=== PATIENT | female | born 1985 | race American Indian/Alaskan Native ===

== ENCOUNTER 2019-11-24 07:04 | Day surgery (SDC) | payer MEDICAID ==
[~2019-11-24 07:04] MED LIST: LACTATED RINGERS 1,000 ML IV SCH; MIDAZOLAM 2 MG/2 ML INJ IV NR
--- NOTE | 2019-11-24 07:33 | Anesthesia Consultation ---
Anesthesia Consult and Med Hx Date of service: 11/24/19 - Airway Anesthetic Teeth Evaluation: Good (crowded teeth, one broken tooth right lower back) ROM Head & Neck: Adequate Mental/Hyoid Distance: Adequate Mallampati Class: Class II Intubation Access Assessment: Probably Good - Pre-Operative Health Status ASA Pre-Surgery Classification: ASA2 Proposed Anesthetic Plan: General - Pulmonary Hx Smoking: Yes (SMOKED HOOKAH QUIT 1 YR AGO) Hx Asthma: No COPD: No Hx Pneumonia: No Hx Sleep Apnea: No (ELISABET PRE SCREEN NEGATIVE) - Cardiovascular System Hx Hypertension: No - Central Nervous System Hx Back Pain: Yes (OCC. LOWER) Hx Psychiatric Problems: No - Endocrine Hx Renal Disease: Yes (left kidney cyst, hematuria) Hx Liver Disease: No - Hematic Hx Sickle Cell Disease: No - Other Systems Hx Alcohol Use: No Hx Substance Use: No Hx Cancer: No Hx Obesity: Yes (BMI 30.5)
--- NOTE | 2019-11-24 07:33 | Anesthesia Day of Surgery ---
Anesthesia Day of Surgery - Day of Surgery Patient Examined: Yes Patient H&P Reviewed: Yes Patient is NPO: Yes
[2019-11-24] MEDS ORDERED: ceFAZolin/STERILE WATER 2 GM/20 ML SYRINGE IV NR (08:00)
[2019-11-24] MEDS ORDERED: fentaNYL 100 MCG/2 ML INJ IV PRN (08:28)
[2019-11-24] MEDS ORDERED: LIDOCAINE MPF (2%) 20 MG/1 ML VIAL 5 ML ONE (09:37)
[2019-11-24] MEDS ORDERED: ONDANSETRON 4 MG/2 ML INJ ONE (09:37)
[2019-11-24] MEDS ORDERED: dexAMETHasone 20 MG/5 ML VIAL ONE (09:37)
[2019-11-24] MEDS ORDERED: fentaNYL 100 MCG/2 ML INJ ONE (09:38)
[2019-11-24] MEDS ORDERED: propofoL 200 MG/20 ML VIAL IV ONE (09:38)
[2019-11-24] MEDS ORDERED: WATER FOR IRRIG STERILE 2000 ML IR ONE (10:00)
--- NOTE | 2019-11-24 10:42 | Operative Report ---
PREOPERATIVE DIAGNOSIS: Hematuria. POSTOPERATIVE DIAGNOSIS: Hematuria. PROCEDURE: Cystoscopy, retrograde. SURGEON: Dr. Parker. ANESTHESIA: General. FINDINGS: This is a woman with hematuria. She now presents for cystoscopy. All options discussed. Cytology negative. She has a renal cyst. DESCRIPTION OF PROCEDURE: The patient was brought to the operating room and she was placed on the operating table. Following induction of anesthesia, she was placed in lithotomy position, prepped and draped in usual sterile fashion. Cystourethroscopy showed no bladder lesions. Retrograde showed slightly narrowed orifices and no lesions. Retrograde was performed, which showed good filling, good drainage, few air bubbles bilaterally, which drained. The patient tolerated the procedure well. No biopsies were required. She was brought to recovery in stable condition. JOB# [id number] BRIELLE/CHRISTIE
--- NOTE | 2019-11-24 10:56 | Post Operative Note ---
Date of procedure: 11/24/19 Pre-op diagnosis: hematuria Post-op diagnosis: same Findings: normal Procedure: normal Anesthesia: GETA Surgeon: MICHELLE HARRIS Estimated blood loss: none Pathology: list (urine) Specimen disposition: to lab Condition: stable Disposition: PACU
--- NOTE | 2019-11-24 10:57 | Discharge Summary ---
Short Stay Discharge Plan Activity: no restrictions, other Weight Bearing Status: Non-Weight Bearing Diet: regular, low fat Follow up with: PRIMARY CARE, [Primary Care Provider] - 7 Days MICHELLE HARRIS MD [Staff Physician] - 14 Days Forms: [facility] Inst.
[2019-11-24 11:01] VITALS: BP 132/74
--- NOTE | 2019-11-24 12:47 | Post Anesthesia Evaluation ---
- Post Anesthesia Evaluation Patient Participated: Yes Airway Patent: Yes Stable Respiratory Function: Yes Nausea/Vomiting: No Temp > 96.8F: Yes Pain Manageable: Yes Adequeate Hydration: Yes Anesthesia Complications: No
--- NOTE | 2019-11-24 14:52 | Fluoroscopy Report ---
INTRAOPERATIVE FLUOROSCOPY: RETROGRADE UROGRAPHY INDICATION: GROSS HEMATURIA. TECHNIQUE: Intraoperative spot images were obtained during the procedure. FINDINGS: There is unremarkable opacification of the ureters and renal collecting systems. Please see the proce dural report for further details. Fluoroscopy Time: 15 seconds. Fluoroscopy Images: 9. Signer Name: Chan Perez MD Signed: 11/24/2019 2:48 PM Workstation Name: [id number]
== END 2019-11-24 11:59 | disposition home or self-care (01) ==
LOC: OR 07:04 → EDSEX 09:45 → OR 11:59
PROVIDERS: ATTEND Urology
DX: R31.9 Hematuria, unspecified (principal); N28.1 Cyst of kidney, acquired; E66.9 Obesity, unspecified; Z98.51 Tubal ligation status; Z90.710 Acquired absence of both cervix and uterus; Z98.890 Other specified postprocedural states; Z87.891 Personal history of nicotine dependence; Z68.30 Body mass index [BMI] 30.0-30.9, adult
CPT/HCPCS: 52005; 74420; 88112; A4217; C1758; J0690; J1100; J2250; J2405; J2704; J3010; J7120; Q9967